=== PATIENT | female | born 1995 | race Caucasian/White ===

== ENCOUNTER 2017-05-03 16:41 | Emergency (ER) | payer OTHER, MEDICAID ==
[~2017-05-03] VITALS: Ht 167.6 cm; Wt 64.0 kg
[2017-05-03 19:00] VITALS: BP 120/77
== END 2017-05-03 19:02 | disposition home or self-care (01) ==
LOC: ED 18:56
DX: S62.521A Displaced fracture of distal phalanx of right thumb, initial encounter for closed fracture (principal); Y04.0XXA Assault by unarmed brawl or fight, initial encounter; Y93.89 Activity, other specified; Y99.8 Other external cause status; Y92.149 Unspecified place in prison as the place of occurrence of the external cause
CPT/HCPCS: 29125; 99284

== ENCOUNTER 2018-04-10 02:30 | Emergency (ER) | payer MEDICAID, OTHER ==
[~2018-04-10] VITALS: Ht 167.6 cm; Wt 64.8 kg
[2018-04-10] MEDS ORDERED: TRAZ-137 PO (02:39)
[2018-04-10] MEDS ORDERED: TRILEPTAL (02:39)
[2018-04-10] MEDS ORDERED: CITA10TA8 PO (02:39)
[2018-04-10 02:52] LABS: BASOPHILS # (AUTO) 0.08 x10^3/uL (0-0.1); BASOPHILS % (AUTO) 1 % (0-1); EOSINOPHILS # (AUTO) 0.23 x10^3/uL (0-0.4); EOSINOPHILS % (AUTO) 2 % (1-7); LYMPHOCYTES % (AUTO) 32 % (22-44); MD NO; MEAN CORPUSCULAR HEMOGLOBIN 31.5 pg (27.0-34.8); MEAN CORPUSCULAR HGB CONC 33.2 g/dL (32.4-35.8); MEAN CORPUSCULAR VOLUME 94.8 fL (80-100); MEAN PLATELET VOLUME 8.1 fL (7.4-10.4); MONOCYTES # (AUTO) 0.47 x10^3/uL (0.2-0.8); MONOCYTES % (AUTO) 4 % (2-9); NEUTROPHILS # (AUTO) 6.84 x10^3/uL (1.8-6.8); NEUTROPHILS % (AUTO) 62 % (42-75); PLATELET COUNT 245 x10^3/uL (130-400); RED BLOOD COUNT 4.77 x10^6/uL (3.82-5.3); RED CELL DISTRIBUTION WIDTH 14.1 % (9.6-15.2)
[2018-04-10 03:02] LABS: ALBUMIN 4.4 g/dL (3.4-5.0); ANION GAP 7 mmol/L (5-15); CALCIUM 8.3 mg/dL (8.5-10.1); CHLORIDE 116 mmol/L (98-107); CREATININE 0.88 mg/dL (0.55-1.02); SALICYLATE LEVEL < 1.7 mg/dL (2.8-20.0)
[2018-04-10 03:07] LABS: ACETAMINOPHEN < 2 mcg/mL (10-30)
--- NOTE | 2018-04-10 03:21 | NUR ---
PT WITH RR 8 AND PULSE OX OF 86. PT MUCH MORE LETHARGIC. PT PLACED ON 2LNC NOW SATTING 100%. INFORMED.
[2018-04-10] MEDS ORDERED: IBUPROFEN 600 MG TABLET PO ONE (04:30)
[2018-04-10] MEDS ORDERED: IBUPROFEN 200 MG TABLET ONE (04:35)
--- NOTE | 2018-04-10 04:41 | NUR ---
PT MEDICATED PER APR. PT WAS ASSISTED TO RESTROOM AND BACK INTO BED. PT AMBULATES WITH MOSTLY STEADY GAIT. POC DISCUSSED. PT DENIES FURTHER NEEDS AT THIS TIME.
--- NOTE | 2018-04-10 05:28 | NUR ---
OXYGEN TURNED OFF. WHEN SLEEPING SATS DROP TO 87% INTERMITTENTLY. PT OXYGEN TURNED BACK ON SATS NOW 99%
--- NOTE | 2018-04-10 06:12 | NUR ---
PT NOW MAINTAINING APPROPRIATE RR AND O2 SATS. INFORMED. PT TO BE DC'D
[2018-04-10 06:23] VITALS: BP 116/74
--- NOTE | 2018-04-10 06:28 | NUR ---
PT GIVEN TAXI VOUCHER FOR SAFE DC TO HER MOTHERS HOUSE. PER PTS REQUEST PTS MOTHER WAS CONTACTED AND INFORMED PT WILL BE HOME VIA TAXI SOON.
== END 2018-04-10 06:29 | disposition home or self-care (01) ==
LOC: ED 06:20
DX: T40.1X1A Poisoning by heroin, accidental (unintentional), initial encounter (principal); R07.89 Other chest pain; Y92.89 Other specified places as the place of occurrence of the external cause
CPT/HCPCS: 36415; 71045; 80048; 80307; 80329; 82040; 84703; 85025; 93005; 99284; G0480

== ENCOUNTER 2020-04-20 01:31 | Emergency (ER) | payer MEDICAID ==
[~2020-04-20] VITALS: Ht 170.2 cm; Wt 51.4 kg
[~2020-04-20 01:31] MED LIST: CITA10TA8 PO; TRAZ-175 PO; TRILEPTAL
[2020-04-20] MEDS ORDERED: METHYLNALTREXONE 12 MG/0.6 ML SYR SQ ONE ×2 (01:51→02:00)
--- NOTE | 2020-04-20 01:56 | NUR ---
PT AMBULATORY WITH STEADY GAIT TO BATHROOM TO PROVIDE URINE SAMPLE.
[2020-04-20 02:13] LABS: BASOPHILS % (AUTO) 1 % (0-1); EOSINOPHILS % (AUTO) 5 % (1-7); LYMPHOCYTES % (AUTO) 47 % (22-44); MEAN CORPUSCULAR HEMOGLOBIN 30.4 pg (27.0-34.8); MEAN PLATELET VOLUME 8.4 fL (7.4-10.4); MONOCYTES % (AUTO) 6 % (2-9); NEUTROPHILS % (AUTO) 42 % (42-75); PLATELET COUNT 144 x10^3/uL (130-400); RED BLOOD COUNT 4.64 x10^6/uL (3.82-5.3)
[2020-04-20 02:16] LABS: MICROSCOPIC INDICATED
[2020-04-20 02:21] LABS: ALBUMIN 3.7 g/dL (3.4-5.0); ANION GAP 5 mmol/L (5-15); CALCIUM 8.7 mg/dL (8.5-10.1); CHLORIDE 109 mmol/L (98-107)
[2020-04-20 02:22] LABS: MD NO
--- NOTE | 2020-04-20 03:04 | NUR ---
PT SITTING UPRIGHT ON GUSAMRA, IZABELA, VSS. PT DENIES ANY NEEDS AT THIS TIME. CALL LIGHT AND PERSONAL BELONGINGS WITHIN REACH. AWAITING ERP FOR RECHECK
[2020-04-20] MEDS ORDERED: PROPOFOL 10 MG/ML, 20ML IVPush ONE (04:00)
[2020-04-20] MEDS ORDERED: PROPOFOL 10 MG/ML, 20ML ONE ×2 (04:07→04:17)
--- NOTE | 2020-04-20 04:20 | NUR ---
PROCEDURAL SEDATION PERFORMED PER ERP ORDER WITH ERP DR. KIM AT BEDSIDE FOR DIGITAL DISIMPACTION. PT VERBALIZED UNDERSTANDING OF PROCEDURE. SIGNED INFORMED CONSENT AT THE BEDSIDE. EMERGENCY EQUIPMENT AVAILABLE INCLUDING SUCTION AND BVM. PT CONNECTED TO CONTINUOUS PULSE OX, CARDIAC MONITORING AND CO2. Addendum: 04/20/20 at 0553 by MINGALLS PROCEDURAL SEDATION PERFORMED PER ERP ORDER WITH ERP DR. KIM AT BEDSIDE FOR DIGITAL DISIMPACTION. PT VERBALIZED UNDERSTANDING OF PROCEDURE. SIGNED INFORMED CONSENT AT THE BEDSIDE. EMERGENCY EQUIPMENT AVAILABLE INCLUDING SUCTION AND BVM. PT CONNECTED TO CONTINUOUS PULSE OX, CARDIAC MONITORING AND CO2 MONITORING. SEEE PAPER PROCEDURAL SEDATION CHARTING FOR FURTHER DETAILS.
--- NOTE | 2020-04-20 04:45 | NUR ---
PROCEDURAL SEDATION COMPLETE. PT TOLERATED PROCEDURE WELL. VITALS REMAIN STABLE. WILL CONTINUE TO REMAIN AT BEDSIDE UNTIL PT AT BASELINE A&O. Addendum: 04/20/20 at 0555 by MINGALLS PROCEDURAL SEDATION COMPLETE. PT TOLERATED PROCEDURE WELL. VITALS REMAIN STABLE. WILL CONTINUE TO REMAIN AT BEDSIDE UNTIL PT AT BASELINE A&O. TOTAL PROPOFOL: 150MG FOR ENTIRE PROCEDURE.
--- NOTE | 2020-04-20 05:00 | NUR ---
PT SITTING UPRIGHT ON GURNEY, RETURNED TO BASELINE A&OX4. ABLE TO COUGH AND DEEP BREATHE SPONTANEOUSLY. PT STATES "OK I FEEL A LOT BETTER, I'M REALLY READY TO GO BACK HOME NOW". ERP AWARE. AWAITING D/C
[2020-04-20 05:20] VITALS: BP 103/67
--- NOTE | 2020-04-20 05:30 | NUR ---
Patient given discharge instructions and they have confirmed that they understand the instructions. Patient ambulatory with steady gait. Pt returned to baseline mentation and significant other to drive pt home. Pt denies any further questions or concerns.
== END 2020-04-20 05:35 | disposition home or self-care (01) ==
LOC: ED 05:00
DX: K56.41 Fecal impaction (principal); N30.00 Acute cystitis without hematuria; R10.84 Generalized abdominal pain
CPT/HCPCS: 36415; 74021; 80048; 81001; 82040; 84703; 85025; 87077; 87086; 87186; 96372; 99152; 99285

== ENCOUNTER 2020-08-30 20:58 | Emergency (ER) | payer MEDICAID ==
[~2020-08-30] VITALS: Ht 170.2 cm; Wt 52.1 kg
[2020-08-30 21:02] VITALS: BP 102/64
--- NOTE | 2020-08-30 21:19 | NUR ---
C/O RIGHT BUTTOCK ABSCESS X2 DAYS.
[2020-08-30] MEDS ORDERED: LIDOCAINE-MPF 1%, 5ML INFIL ONE (21:30)
[2020-08-30] MEDS ORDERED: LIDOCAINE-MPF 1%, 5ML ONE (21:30)
--- NOTE | 2020-08-30 21:42 | NUR ---
PROVIDER AT BEDSIDE FOR I&D.
== END 2020-08-30 21:57 | disposition home or self-care (01) ==
LOC: ED 21:00
DX: L02.31 Cutaneous abscess of buttock (principal)
CPT/HCPCS: 10060; 99283